=== PATIENT | male | born 1975 | race Caucasian/White ===

== ENCOUNTER 2018-12-14 22:03 | Inpatient (IN) | payer MEDICARE, SELFPAY | END 2018-12-18 11:20 | disposition home or self-care (01) | LOC: J8W 12-17 14:10 → JER 22:03 → JERBED 12-15 03:26 → J8W 12-15 11:28 ==

== ENCOUNTER 2021-06-11 10:33 | Emergency (ER) | payer SELFPAY ==
[2021-06-11 10:46] VITALS: BP 110/99; PULSE 103; TEMP 98.2; BMI 23.6
== END 2021-06-11 13:28 | disposition home or self-care (01) ==
LOC: JER 10:33
DX: R05.1 Acute cough (principal); J02.9 Acute pharyngitis, unspecified; M79.10 Myalgia, unspecified site
CPT/HCPCS: 87804; 99283-25; C9803; U0003; U0005

== ENCOUNTER 2023-01-28 13:35 | Emergency (ER) | payer SELFPAY ==
[2023-01-28 13:45] VITALS: RESP 14; TEMP 98.8; BMI 24.3
[2023-01-28] MEDS ORDERED: SODIUM CHLORIDE 0.9% 500 ML INFUS.BAG IV ONE (15:09)
[2023-01-28 16:13] LABS: BASO % 0.6 % (0-2.0); EOS % 1.2 % (0-4.5); HEMATOCRIT 44.9 % (35.4-49); HEMOGLOBIN 14.9 GM/dL (11.7-16.9); LYMPH % 24.6 % (8-40); MCH 31.9 pg (25.7-33.7); MCHC 33.3 g/dl (32.0-35.9); MEAN CELL VOLUME 95.8 fl (80-96); MEAN PLT VOLUME 7.4 fl (7.5-11.1); MONO % 8.6 % (3.8-10.2); PLATELET COUNT 380 10^3/uL (134-434); RBC 4.69 M/mm3 (4.00-5.60); RDW 13.1 % (11.9-15.9); WHITE BLOOD COUNT 7.2 K/mm3 (4.0-10.0)
[2023-01-28 16:34] LABS: POTASSIUM 4.5 mmol/L (3.5-5.1)
[2023-01-28 16:36] LABS: ALBUMIN 3.6 g/dl (3.4-5.0); CALCIUM 9.2 mg/dL (8.5-10.1)
[2023-01-28 16:37] LABS: BLOOD UREA NITROGEN 16.5 mg/dL (7-18)
[2023-01-28 16:41] LABS: BILIRUBIN,TOTAL 0.4 mg/dL (0.2-1); TOT PROT 8.2 g/dl (6.4-8.2)
[2023-01-28 17:45] VITALS: BP 111/69; PULSE 65
== END 2023-01-28 17:45 | disposition home or self-care (01) ==
LOC: JER 13:35 → JERFT 13:35
DX: R21 Rash and other nonspecific skin eruption (principal)
CPT/HCPCS: 36415; 80053; 85025; 86140; 99283-25

== ENCOUNTER 2024-01-19 09:34 | Observation (INO) | payer OTHER ==
[2024-01-19 11:37] LABS: BASO % 0.4 % (0-2.0); EOS % 0.4 % (0-4.5); HEMATOCRIT 46.4 % (35.4-49); HEMOGLOBIN 15.9 GM/dL (11.7-16.9); LYMPH % 16.5 % (8-40); MCH 33.3 pg (25.7-33.7); MCHC 34.4 g/dl (32.0-35.9); MEAN PLT VOLUME 7.1 fl (7.5-11.1); MONO % 7.3 % (3.8-10.2); NEUT % 75.4 % (42.8-82.8); PLATELET COUNT 251 10^3/uL (134-434); RBC 4.79 M/mm3 (4.00-5.60); RDW 13.7 % (11.9-15.9); WHITE BLOOD COUNT 10.2 K/mm3 (4.0-10.0)
[2024-01-19] MEDS ORDERED: PIPERACILLIN/TAZOB 4.5 GM 4.5 GM/100 ML BAG IVPB ONE (11:37)
[2024-01-19] MEDS: PIPERACILLIN/TAZOB 4.5 GM 4.5 GM in DEXTROSE 5%-WATER 100 ML IVPB ONE (11:40)
[2024-01-19 11:47] LABS: INR 0.92 (0.83-1.09); PROTHROMBIN TIME (PATIENT) 10.4 SEC (9.7-13.0)
[2024-01-19] MEDS ORDERED: VANCOMYCIN 1 GRAM (PRE-DOCKED) 1,000 MG/250 ML BAG IVPB ONE (11:47)
[2024-01-19 11:49] LABS: ACTIVATED PTT 30.5 SECONDS (25.2-36.5)
[2024-01-19 11:59] LABS: POTASSIUM 4.3 mmol/L (3.5-5.1)
[2024-01-19 12:02] LABS: ALBUMIN 3.9 g/dl (3.4-5.0); BLOOD UREA NITROGEN 14.4 mg/dL (7-18); CALCIUM 9.6 mg/dL (8.5-10.1)
[2024-01-19 12:05] LABS: CREATININE 0.9 mg/dL (0.55-1.3)
[2024-01-19 12:06] LABS: TOT PROT 7.9 g/dl (6.4-8.2)
[2024-01-19] MEDS: VANCOMYCIN 1,000 MG in DEXTROSE 5%-WATER - 250 ML IVPB ONE (12:09)
[2024-01-19 12:13] LABS: BILIRUBIN,TOTAL 0.9 mg/dL (0.2-1)
[2024-01-19 12:22] LABS: ERYTHROCYTE SEDIMENTATION RATE 12 mm/hr (0-10)
[2024-01-19 14:27] LABS: CHOLESTEROL 151 mg/dL (50-200)
[2024-01-19 14:29] LABS: LDL CHOLESTEROL (ONLY SJRH) 87 mg/dL (5-100)
[2024-01-19 14:30] LABS: HDL CHOLESTEROL 55 mg/dL (40-60)
[2024-01-19 17:05] VITALS: BMI 22.9
[2024-01-19] MEDS: PIPERACILLIN/TAZOB 3.375 GM 3.375 GM in DEXTROSE 5%-WATER - 50 ML IVPB SCH (17:31)
[2024-01-19] MEDS: AMPICILLIN NA/SULBACTAM NA 3 GM in SODIUM CHLORIDE 100 ML IVPB SCH (23:03)
[2024-01-20 08:39] LABS: BASO % 0.6 % (0-2.0); EOS % 1.2 % (0-4.5); HEMOGLOBIN 16.4 GM/dL (11.7-16.9); LYMPH % 17.7 % (8-40); MCH 33.6 pg (25.7-33.7); MCHC 34.2 g/dl (32.0-35.9); MEAN CELL VOLUME 98.1 fl (80-96); MEAN PLT VOLUME 7.3 fl (7.5-11.1); MONO % 7.7 % (3.8-10.2); NEUT % 72.8 % (42.8-82.8); PLATELET COUNT 243 10^3/uL (134-434); RBC 4.89 M/mm3 (4.00-5.60); RDW 13.8 % (11.9-15.9); WHITE BLOOD COUNT 9.5 K/mm3 (4.0-10.0)
[2024-01-20 08:57] LABS: POTASSIUM 4.6 mmol/L (3.5-5.1)
[2024-01-20 09:00] LABS: CALCIUM 9.2 mg/dL (8.5-10.1)
[2024-01-20 09:01] LABS: ALBUMIN 3.5 g/dl (3.4-5.0); BLOOD UREA NITROGEN 13.6 mg/dL (7-18)
[2024-01-20 09:04] LABS: CREATININE 0.9 mg/dL (0.55-1.3)
[2024-01-20 09:06] LABS: TOT PROT 7.6 g/dl (6.4-8.2)
[2024-01-20] MEDS ORDERED: PIPERACILLIN/TAZOB 3.375 GM 3.375 GM in DEXTROSE 5%-WATER - 50 ML IVPB SCH (10:00)
[2024-01-21] MEDS: ENOXAPARIN NA (PORCINE) 40 MG/0.4 ML DISP.SYRIN SQ SCH (09:53)
[2024-01-21 10:19] LABS: HEMATOCRIT 48.7 % (35.4-49); HEMOGLOBIN 16.3 GM/dL (11.7-16.9); MCH 33.3 pg (25.7-33.7); MCHC 33.5 g/dl (32.0-35.9); MEAN CELL VOLUME 99.3 fl (80-96); MEAN PLT VOLUME 7.6 fl (7.5-11.1); PLATELET COUNT 253 10^3/uL (134-434); RDW 13.5 % (11.9-15.9); WHITE BLOOD COUNT 9.9 K/mm3 (4.0-10.0)
[2024-01-21 11:35] LABS: POTASSIUM 4.1 mmol/L (3.5-5.1)
[2024-01-21 11:39] LABS: ALBUMIN 3.6 g/dl (3.4-5.0); BLOOD UREA NITROGEN 16.9 mg/dL (7-18); CALCIUM 9.4 mg/dL (8.5-10.1); MAGNESIUM 2.3 mg/dL (1.8-2.4)
[2024-01-21 11:42] LABS: PHOSPHOROUS 3.3 mg/dL (2.5-4.9)
[2024-01-21 11:43] LABS: BILIRUBIN,TOTAL 0.7 mg/dL (0.2-1); TOT PROT 7.5 g/dl (6.4-8.2)
[2024-01-21 16:19] VITALS: BP 126/71; PULSE 74; RESP 18; TEMP 98.6
== END 2024-01-21 16:25 | disposition home or self-care (01) ==
LOC: JERFT 09:34 → JER 09:34 → JERBED 11:28 → J5S 16:23
PROVIDERS: ADMIT Internal Medicine
PROC: 3E03329 Introduction of Other Anti-infective into Peripheral Vein, Percutaneous Approach (ICD-10-PCS; principal; 2024-01-19)
PROC: 3E023GC Introduction of Other Therapeutic Substance into Muscle, Percutaneous Approach (ICD-10-PCS; 2024-01-19)
DX: L03.032 Cellulitis of left toe (principal); E11.9 Type 2 diabetes mellitus without complications; M79.672 Pain in left foot; M79.675 Pain in left toe(s); Z72.0 Tobacco use
CPT/HCPCS: 36415; 73630-TC-LT; 80053; 80061; 82962; 83036; 83735; 84100; 85025; 85027; 85610; 85651; 85730; 86140; 87040; 93005; 93010; 96365; 96366; 96367; 96368; 96372; 99285-25; G0378